=== PATIENT | female | born 1960 | race Caucasian/White ===

== ENCOUNTER → 2021-09-13 | Day surgery (SDC) | payer OTHER ==
[~2021-09-13] VITALS: Ht 154.9 cm; Wt 83.9 kg
[~2021-09-13] MED LIST: NORVASC 10MG TA10 MG PO; SYNTHROID100 MCG PO; VITAMIN D3125 MCG PO; ZYRTEC10 M3 PO
== END | disposition home or self-care (01) ==
LOC: FAS 10:08
DX: Z12.11 Encounter for screening for malignant neoplasm of colon (principal); D12.3 Benign neoplasm of transverse colon; K62.1 Rectal polyp; K64.8 Other hemorrhoids; R10.11 Right upper quadrant pain; R12 Heartburn; I10 Essential (primary) hypertension; E03.9 Hypothyroidism, unspecified; F17.200 Nicotine dependence, unspecified, uncomplicated; Z79.82 Long term (current) use of aspirin
CPT/HCPCS: J2250; J2704; J7120